=== PATIENT | male | born 1985 | race Caucasian/White ===

== ENCOUNTER 2019-03-25 08:31 | Emergency (ER) | payer OTHER ==
[2019-03-25] MEDS ORDERED: KETOROLAC 15 MG INJ IM (09:52)
== END 2019-03-25 10:35 | disposition home or self-care (01) ==
LOC: E/R 08:31
DX: S62.336A Displaced fracture of neck of fifth metacarpal bone, right hand, initial encounter for closed fracture (principal); X58.XXXA Exposure to other specified factors, initial encounter; Y92.89 Other specified places as the place of occurrence of the external cause; Z02.89 Encounter for other administrative examinations
CPT/HCPCS: 29125; 73130-RT; 99283-25